=== PATIENT | female | born 1955 | race Caucasian/White ===

== ENCOUNTER → 2018-07-17 | Day surgery (SDC) | payer OTHER ==
[2018-07-08 12:34] LABS: BASOPHILS # (AUTO) 0.1 (0.0-0.1); BASOPHILS % 0.8 % (0.0-1.0); EOSINOPHILS # (AUTO) 0.1 (0.0-0.4); EOSINOPHILS % 1.4 % (0.0-6.0); HEMOGLOBIN 13.8 g/dL (12.0-16.0); LYMPHOCYTES # (AUTO) 2.3 (1.0-3.2); LYMPHOCYTES % 29.6 % (18.0-39.1); MEAN CORPUSCULAR HEMOGLOBIN 31.8 pg (28-32); MEAN CORPUSCULAR HGB CONC 34.5 g/dL (31-35); MEAN CORPUSCULAR VOLUME 92.2 fL (81-99); MONOCYTES # (AUTO) 0.6 (0.2-0.8); MONOCYTES % 7.9 % (4.4-11.3); NEUTROPHILS # (AUTO) 4.7 (2.1-6.9); NEUTROPHILS % 60.2 % (38.7-80.0); PLATELET COUNT 313 x10e3/uL (140-360); RED BLOOD COUNT 4.34 x10e6/uL (3.6-5.1); RED CELL DISTRIBUTION WIDTH 12.7 % (11.7-14.4)
--- NOTE | 2018-07-08 12:57 | Diagnostic Imaging Report ---
EXAMINATION: PA and lateral views of the chest. COMPARISON: None CLINICAL HISTORY: Preoperative study, rectal prolapse DISCUSSION: Lines/tubes: None. Lungs: The lungs are well inflated and clear. There is no evidence of pneumonia or pulmonary edema. Pleura: There is no pleural effusion or pneumothorax. Heart and mediastinum: The cardiomediastinal silhouette is normal. Bones and soft tissues: No acute bony abnormalities. Degenerative changes in the thoracic spine IMPRESSION: No acute cardiopulmonary abnormalities. Signed by: Dr. Anton Alatorre M.D. on 07/08/2018 12:53 PM
[~2018-07-17] MED LIST: ACETAMINOPHEN 1000 MG/100 ML IV ONE; ASPIR-LOW81 MG; BUPIVACAINE 0.25% 30ML SDV INJ ONE; BUPIVACAINE HCL 0.5% INJ 30 ML VIAL INJ ONE; CALCIUM; CEFAZOLIN SOD 1 GM VIAL ONE; DEXAMETHASONE SOD PHOS INJ 4 MG/ML VIAL ONE; ESTRADIOL1 MG PO; ESTROGENS CONJUGATED VAGINAL CR 45 GM TUBE PV ONE; FENTANYL CITRATE/PF 100MCG/2 ML INJ ONE; GLYCOPYRROLATE INJ 1MG/ 5 ML SYR ONE; LIDOCAINE HCL 2% LOCAL INJ 5 ML SDV VIAL INJ ONE; LOSARTAN POTAS100 MG PO; MIDAZOLAM HCL 2 MG/2 ML VIAL ONE; MOVE FREE; MULTIVITAMINS1 EAC8; ONDANSETRON HCL INJ 2 MG/ML VIAL ONE; PRAVASTATIN SOD40 MG; PROPOFOL IV EMULSION 10 MG/ML 20 ML VIAL ONE; SEVOFLURANE INHAL SOLN 250 ML PEN BTL ONE; TRAMADOL HCL 50 MG TAB ONE; TRIAM/HCTZ; VERAPAMIL ER120 MG
--- OUTSIDE RECORDS SUMMARY | 2018-07-17 05:37 | XMS REPORT ---
Author Author [facility] Address Unknown Phone Unavailable Care Team Providers Care Crystal Cutter Name Role Phone TESFAYE SCHWARTZ Unavailable Unavailable Problems This patient has no known problems. Allergies, Adverse Reactions, Alerts This patient has no known allergies or adverse reactions. Medications This patient has no known medications. Results Test Description Test Time Test Comments Text Results Atomic Results Result Comments CHEST 2 VIEWS 2018-07-08 12:52:00 [place] [id number] Patient Name: NOAH QUACH MR #: [id number] : 1955 Age/Sex: 63/F Req #: [id number] [facility] Physician: Ordered by: TESFAYE SCHWARTZ MD Report #: [id number] Location: OR Room/Bed: Procedure: [id number] DX/CHEST 2 VIEWS Exam Date: 07/08/18 Exam Time: 1235 REPORT STATUS: Signed EXAMINATION: PA and lateral views of the chest. COMPARISON: None CLINICAL HISTORY: Preoperative study, rectal prolapse DISCUSSION: Lines/tubes: None. Lungs: The lungs are well inflated and clear. There is no evidence of pneumonia or pulmonary edema. Pleura: There is no pleural effusion or pneumothorax. Heart and mediastinum: The cardiomediastinal silhouette is normal. Bones and soft tissues: No acute bony abnormalities. Degenerative changes in the thoracic spine IMPRESSION: No acute cardiopulmonary abnormalities. Signed by: Dr. Sol Velazquez M.D. on 07/08/2018 12:53 PM Dictated By: SOL VELAZQUEZ MD [id number] Transcribed By: JOSEP on 07/08/189 COPY TO: TESFAYE SCHWARTZ MD
--- NOTE | 2018-07-17 09:25 | Operative Report ---
DATE OF PROCEDURE: July 17, 2018 PREOPERATIVE DIAGNOSES 1. Rectocele. 2. Vault prolapse. POSTOPERATIVE DIAGNOSES 1. Rectocele. 2. Vault prolapse. PROCEDURE: Repair of sacrospinous colpopexy. COMPLICATIONS: None. ESTIMATED BLOOD LOSS: 20 mL. PROCEDURE: The patient was taken to the OR and general anesthesia was given. Patient was prepped and draped in the normal sterile fashion. Placed in the dorsal lithotomy position. Post procedure, the subvaginal wall was injected with Marcaine with epinephrine 0.25%, 35 mL were injected subvaginally posteriorly. Two Allis clamps were applied at the mucocutaneous junction about 1 cm from the fourchette. The mucocutaneous junction between the 2 Allis clamps was excised. Subvaginal tissue was dissected off the rectum and the perineal muscles using both sharp and blunt dissection with Metzenbaum scissors. Following this, the pelvic fascia was pierced and the sacrospinous ligament was identified on both sides. A Vicryl suture was applied on the sacrospinous ligament about 1 cm medial to the ischial spine using the . The same was repeated on the other side. The other end was hooked and stretched to the vaginal vault of the suture. The levator on each side were reapproximated using 0 Vicryl. The excess vaginal skin was trimmed off using scissors. The vagina was closed with continuous 2-0 sutures. Driver catheter and vaginal pack was inserted. The patient tolerated the procedure well. Lap, sponge and needle counts were correct times 3 at the end of the procedure. Job#: [id number] MADAN
[2018-07-17 14:00] VITALS: BP 123/72
== END | disposition home or self-care (01) ==
LOC: OR 05:22
PROVIDERS: ATTEND Obstetrics & Gynecology
DX: N81.6 Rectocele (principal); N39.41 Urge incontinence; I10 Essential (primary) hypertension; K58.9 Irritable bowel syndrome, unspecified; Z01.810 Encounter for preprocedural cardiovascular examination; Z01.812 Encounter for preprocedural laboratory examination; Z01.818 Encounter for other preprocedural examination; Z79.82 Long term (current) use of aspirin; Z88.6 Allergy status to analgesic agent; Z88.5 Allergy status to narcotic agent; Z87.891 Personal history of nicotine dependence
CPT/HCPCS: 36415; 57282; 71046; 85025; 93005; J0131; J0690; J1100; J2001; J2250; J2405; J2704; J3490